=== PATIENT | female | born 1965 | race Caucasian/White ===

== ENCOUNTER 2017-06-05 12:04 | Emergency (ER) | payer OTHER ==
[2017-06-05 12:22] VITALS: BP 128/80; PULSE 88; TEMP 99.4; O2SAT 97
[2017-06-05 12:27] VITALS: RESP 18
--- NOTE | 2017-06-05 14:29 | ED PDOC ---
Arrival/HPI - General Chief Complaint: Eye Problem Time Seen by Provider: 06/05/17 12:31 Historian: Patient - History of Present Illness Narrative History of Present Illness (Text): 06/05/17 14:24 A 52 year old female presents to the emergency department complaining of left eye pain for 1 week. Patient feels there is a foreign body located in her eye. Patient notes tearing and pain when blinking but denies any discharge. Patient wears glasses but currently does not have them with her in the emergency room. She was seen by PMD prior to arrival and instructed to see an semi automatic sewing machine operator for further evaluation. Patient denies any fever, chills, nausea, vomiting, abdominal pain, chest pain, shortness of breath or any other complaints. Time/Duration: 1 week Quality: Other Context: Home Past Medical History - Provider Review Nursing Documentation Reviewed: Yes - Infectious Disease Hx of Infectious Diseases: None - Reproductive Menopause: Yes - Cardiac Hx Angina: Yes Hx Hypertension: Yes - Pulmonary Hx Asthma: Yes - Neurological Hx Seizures: Yes Other/Comment: brain aneurysm - Endocrine/Metabolic Hx Diabetes Mellitus Type 2: Yes - Psychiatric Hx Substance Use: Yes - Anesthesia Hx Anesthesia: No Family/Social History - Physician Review Nursing Documentation Reviewed: Yes Family/Social History: No Known Family HX Smoking Status: Current Some Days Smoker Hx Alcohol Use: No Hx Substance Use: Yes Substance used: marijuana Allergies/Home Meds Allergies/Adverse Reactions: Allergies strawberry Allergy (Verified 06/05/17 12:24) CONGESTION tomato Allergy (Verified 06/05/17 12:24) CONGESTION Home Medications: Home Meds Medication Instructions Recorded Confirmed Unobtainable 06/05/17 06/05/17 Review of Systems - Physician Review All systems were reviewed & negative as marked: Yes - Review of Systems Constitutional: absent: Fevers, Night Sweats Eyes: Eye Pain (left eye pain) Respiratory: absent: SOB, Cough Cardiovascular: absent: Chest Pain Gastrointestinal: absent: Abdominal Pain, Nausea, Vomiting Physical Exam Vital Signs Reviewed: Yes Vital Signs Temp Pulse Resp BP Pulse Ox 06/05/17 12:27 99.4 F 88 18 128/80 97 06/05/17 12:17 99.4 F 88 16 128/80 97 Temperature: Afebrile Blood Pressure: Normal Pulse: Regular Respiratory Rate: Normal Appearance: Positive for: Well-Appearing, Non-Toxic, Comfortable Pain Distress: None Mental Status: Positive for: Alert and Oriented X 3 - Systems Exam Head: Present: Atraumatic, Normocephalic Pupils: Present: PERRL Extroacular Muscles: Present: EOMI Conjunctiva: Present: Normal (normal right eye), Injected (left eye injected, no discharge, no obvious foreign body noted) Mouth: Present: Moist Mucous Membranes Neck: Present: Normal Range of Motion Respiratory/Chest: Present: Clear to Auscultation, Good Air Exchange. No: Respiratory Distress, Accessory Muscle Use Cardiovascular: Present: Regular Rate and Rhythm, Normal S1, S2. No: Murmurs Abdomen: Present: Normal Bowel Sounds. No: Tenderness, Distention, Peritoneal Signs Back: Present: Normal Inspection Upper Extremity: Present: Normal Inspection. No: Cyanosis, Edema Lower Extremity: Present: Normal Inspection. No: Edema Neurological: Present: GCS=15, CN II-XII Intact, Speech Normal Skin: Present: Warm, Dry, Normal Color. No: Rashes Psychiatric: Present: Alert, Oriented x 3, Normal Insight, Normal Concentration Medical Decision Making ED Course and Treatment: 06/05/17 14:24 Impression: A 52 year old female with left eye pain. Progress Notes: Case discussed with semi automatic sewing machine operator refrigeration installer, states they can see patient in the office in 1 hour. I have discussed the plan with the patient, who expresses understanding. Patient in agreement. - Scribe Statement The provider has reviewed the documentation as recorded by the Scribe Melody Kwon Provider Scribe Attestation: All medical record entries made by the Scribe were at my direction and personally dictated by me. I have reviewed the chart and agree that the record accurately reflects my personal performance of the history, physical exam, medical decision making, and the department course for this patient. I have also personally directed, reviewed, and agree with the discharge instructions and disposition. Disposition/Present on Arrival - Present on Arrival Any Indicators Present on Arrival: No History of DVT/PE: No History of Uncontrolled Diabetes: No Urinary Catheter: No History of Decub. Ulcer: No History Surgical Site Infection Following: None - Disposition Have Diagnosis and Disposition been Completed?: Yes Diagnosis: Foreign body in eye Disposition: HOME/ ROUTINE Disposition Time: 12:52 Condition: GOOD Discharge Instructions (ExitCare): Eye Pain (ED) Additional Instructions: Thank you for letting us take care of you today. You were treated for a possible foreign body in the eye. The emergency medical care you received today was directed at your acute symptoms. If you were prescribed any medication, please fill it and take as directed. It may take several days for your symptoms to resolve. Return to the Emergency Department if your symptoms worsen, do not improve, or if you have any other problems. Please contact your doctor or call one of the physicians/clinics you have been referred to that are listed on the Patient Visit Information form that is included in your discharge packet. Bring any paperwork you were given at discharge with you along with any medications you are taking to your follow up visit. Our treatment cannot replace ongoing medical care by a primary care provider (PCP) outside of the emergency department. Thank you for allowing the [facility] team to be part of your care today. Follow up with the eye doctor at 2pm. You have an appointment. THE ADDRESS IS: [address] [place] [address]. [place], [place] Referrals: Kd Cabrera [Staff Provider] - Follow up with primary Forms: [employer] ([employer])
== END 2017-06-05 12:57 | disposition home or self-care (01) ==
LOC: ED 12:04
DX: T15.92XA Foreign body on external eye, part unspecified, left eye, initial encounter (principal); X58.XXXA Exposure to other specified factors, initial encounter; E11.9 Type 2 diabetes mellitus without complications; I10 Essential (primary) hypertension; F17.200 Nicotine dependence, unspecified, uncomplicated